=== PATIENT | male | born 2000 | race Caucasian/White ===

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

== ENCOUNTER 2025-06-21 20:05 | Emergency (ER) | payer SELFPAY ==
[~2025-06-21] VITALS: Ht 177.8 cm; Wt 78.5 kg
[2025-06-21 20:07] VITALS: BP 158/78
== END 2025-06-21 21:34 | disposition home or self-care (01) ==
LOC: ER 20:05
DX: S89.82XA Other specified injuries of left lower leg, initial encounter (principal); Z88.1 Allergy status to other antibiotic agents; V18.4XXA Pedal cycle driver injured in noncollision transport accident in traffic accident, initial encounter
CPT/HCPCS: 73562-LT; 99283-25; A9270